=== PATIENT | female | born 1960 | race Caucasian/White ===

== ENCOUNTER → 2017-09-26 | Outpatient (CLI) | payer OTHER ==
[~2017-09-26] MED LIST: ACET325 PO; AEROECLIPSE II1 EACH MC; ALBU90OI6 INH; CEPH500 PO; CLOBET30L TOP; CLON.5 PO; Duoneb 2.5-0.5 M3 ML INH; ERYT333ERA PO; FLUSAL5005 INH; Flonase 0.05% N16 GM; HYDACE5 PO; LEVFLO500 PO; LEVO750 PO; LITH300C PO; MONT10T PO; NAPR500 PO; NEOPOLHCSU OT; NEOPOLHYD BOTHEARS; Naprosyn500 MG PO; OMEP20ER PO; PRED10 PO; Prednisone20 MG PO; Prilosec Otc20 MG PO; Robaxin500 MG PO; SERT50 PO; TIOT18 IH; TIOT18 INH; TUDORZA PRESS400 MCG IH; Triamcinolone A15 G3 TOP; VARE1 PO; Ventolin Soln3 ML INH; Ventolin5 MG/1 ML IH
[2017-09-27 12:21] LABS: Adenovirus F 40/41 Not Detected (NOT DETECT); Astrovirus Not Detected (NOT DETECT); Campylobacter Sp Not Detected (NOT DETECT); Cryptosporidium Not Detected (NOT DETECT); Cyclospora Cayetanensis Not Detected (NOT DETECT); E. Coli O157 Not Detected (NOT DETECT); Entamoeba Histolytica Not Detected (NOT DETECT); Enteroaggregative E. coli-EAEC Not Detected (NOT DETECT); Enteropathogenic E. coli-EPEC Not Detected (NOT DETECT); Enterotoxigenic E. coli-ETEC Not Detected (NOT DETECT); Giardia Lamblia Not Detected (NOT DETECT); Norovirus GI/GII Not Detected (NOT DETECT); Plesiomonas Shigelloides Not Detected (NOT DETECT); Rotavirus A Not Detected (NOT DETECT); Salmonella Sp Not Detected (NOT DETECT); Sapovirus Not Detected (NOT DETECT); Shiga Toxin-prod E. coli-STEC Not Detected (NOT DETECT); Shigella/Enteroin E. coli-EIEC Not Detected (NOT DETECT); Vibrio Cholerae Not Detected (NOT DETECT); Vibrio Sp Not Detected (NOT DETECT); Yersinia Enterocolitica Not Detected (NOT DETECT)
== END | disposition home or self-care (01) ==
LOC: LAB 07:00 → LAB FUT 09-23 12:30
PROVIDERS: Internal Medicine Gastroenterology
DX: R19.7 Diarrhea, unspecified (principal)
CPT/HCPCS: 87507

== ENCOUNTER 2017-10-06 13:59 | Day surgery (SDC) | payer OTHER ==
[~2017-10-06] VITALS: Ht 160 cm; Wt 90.5 kg
== END 2017-10-06 15:38 | disposition home or self-care (01) ==
LOC: ORSCSDS 13:59
PROVIDERS: Internal Medicine Gastroenterology
PROC: 0D758ZZ Dilation of Esophagus, Via Natural or Artificial Opening Endoscopic (ICD-10-PCS; principal; 2017-10-06 15:30)
PROC: 0DB58ZX Excision of Esophagus, Via Natural or Artificial Opening Endoscopic, Diagnostic (ICD-10-PCS; principal; 2017-10-06 15:30)
DX: R13.14 Dysphagia, pharyngoesophageal phase (principal); K29.80 Duodenitis without bleeding; K74.69 Other cirrhosis of liver; K29.60 Other gastritis without bleeding; R19.7 Diarrhea, unspecified; J44.9 Chronic obstructive pulmonary disease, unspecified; Z86.19 Personal history of other infectious and parasitic diseases; F17.210 Nicotine dependence, cigarettes, uncomplicated; E66.9 Obesity, unspecified; Z68.35 Body mass index [BMI] 35.0-35.9, adult; Z79.899 Other long term (current) drug therapy
CPT/HCPCS: 87081; 88305; J7120

== ENCOUNTER 2018-11-11 19:26 | Emergency (ER) | payer OTHER ==
[~2018-11-11] VITALS: Ht 160 cm; Wt 93.9 kg
[2018-11-11 20:12] LABS: BASOPHILS ABSOLUTE AUTO 0.06 K/mm3 (0.00-0.23); BASOPHILS PERCENT AUTO 1 % (0-2); EOSINOPHILS ABSOLUTE AUTO 0.16 K/mm3 (0.00-0.68); EOSINOPHILS PERCENT AUTO 2 % (0-6); Hematocrit 40.1 % (33.0-51.0); Hemoglobin 12.6 g/dL (11.5-16.0); IMMATURE GRAN ABSOLUTE AUTO 0.02 K/mm3 (0.00-0.10); IMMATURE GRAN PERCENT AUTO 0 % (0-1); LYMPHOCYTES ABSOLUTE AUTO 1.98 K/mm3 (0.84-5.20); LYMPHOCYTES PERCENT AUTO 30 % (21-46); MONOCYTES ABSOLUTE AUTO 0.47 K/mm3 (0.16-1.47); MONOCYTES PERCENT AUTO 7 % (4-13); Mean Corpuscular HGB 32.9 pg (26.0-34.0); Mean Corpuscular HGB Conc 31.4 g/dL (31.5-36.5); Mean Corpuscular Volume 105 fL (80-100); Mean Platelet Volume 12.1 fL (9.1-12.4); NEUTROPHILS ABSOLUTE AUTO 3.92 K/mm3 (1.96-9.15); NEUTROPHILS PERCENT AUTO 59 % (41-73); Platelet Count 87 K/mm3 (150-400); RDW Coefficient Variation 13.2 % (11.7-14.2); RDW Standard Deviation 50.9 fL (35.1-46.3); Red Blood Cell Count 3.83 M/mm3 (3.80-5.20); White Blood Cell Count 6.61 K/mm3 (4.00-11.30)
[2018-11-11 20:32] LABS: Alanine Aminotransfer (ALT/SGP 35 U/L (12-78); Albumin, Blood 3.2 g/dL (3.4-5.0); Albumin/Globulin Ratio 0.8 (0.8-1.8); Alk Phos 93 U/L (50-136); Anion Gap 4 mmol/L (6-16); Aspartate Aminotrans (AST/SGOT 33 U/L (12-37); Bilirubin, Total 0.5 mg/dL (0.1-1.0); Blood Urea Nitrogen 6 mg/dL (8-24); Bun/Creatinine Ratio 7.3 (12.0-20.0); CO2, Blood 26 mmol/L (21-32); Calcium, Blood 8.6 mg/dL (8.5-10.1); Chloride, Blood 111 mmol/L (98-108); Creatinine, Blood 0.82 mg/dL (0.40-1.00); Globulin, Blood 3.8 g/dL (2.2-4.0); Glomerular Filtration Rate >60 (60-); Glucose, Blood 148 mg/dL (70-99); Potassium, Blood 3.6 mmol/L (3.5-5.5); Sodium, Blood 141 mmol/L (136-145)
[2018-11-11] MEDS ORDERED: CEFD300 PO (20:59)
== END 2018-11-11 21:56 | disposition home or self-care (01) ==
LOC: ER 19:26
PROVIDERS: Physician Assistant
DX: L03.213 Periorbital cellulitis (principal); Z88.0 Allergy status to penicillin; Z88.8 Allergy status to other drugs, medicaments and biological substances; Z88.5 Allergy status to narcotic agent; Z79.899 Other long term (current) drug therapy; Z87.891 Personal history of nicotine dependence
CPT/HCPCS: 36415; 70481; 80053; 85025; 99284-25; Q9967

== ENCOUNTER 2019-07-20 10:43 | Day surgery (SDC) | payer OTHER ==
[~2019-07-20 10:43] MED LIST changes: +CEFD300 PO
== END 2019-07-20 23:12 | disposition home or self-care (01) ==
LOC: MIR 10:43 → RAD 10:43 → MIR 11:30 → RAD 23:12
DX: R13.14 Dysphagia, pharyngoesophageal phase (principal); R13.12 Dysphagia, oropharyngeal phase; E04.1 Nontoxic single thyroid nodule; R49.0 Dysphonia; R49.9 Unspecified voice and resonance disorder; M46.02 Spinal enthesopathy, cervical region; Z79.899 Other long term (current) drug therapy
CPT/HCPCS: 74230; 92611

== ENCOUNTER 2019-08-08 08:19 | Day surgery (SDC) | payer OTHER ==
[2019-08-08 10:02] LABS: Performing Lab VERACYTE; Test Name FNA
== END 2019-08-08 22:52 | disposition home or self-care (01) ==
LOC: US 08:19
PROVIDERS: Otolaryngology
DX: E04.1 Nontoxic single thyroid nodule (principal)
CPT/HCPCS: 10005

== ENCOUNTER 2019-10-17 16:31 | Emergency (ER) | payer OTHER ==
[~2019-10-17] VITALS: Ht 160 cm; Wt 65.3 kg
[2019-10-17 17:35] LABS: BASOPHILS ABSOLUTE AUTO 0.06 K/mm3 (0.00-0.23); BASOPHILS PERCENT AUTO 1 % (0-2); EOSINOPHILS ABSOLUTE AUTO 0.17 K/mm3 (0.00-0.68); EOSINOPHILS PERCENT AUTO 3 % (0-6); Hematocrit 45.4 % (33.0-51.0); Hemoglobin 14.2 g/dL (11.5-16.0); IMMATURE GRAN ABSOLUTE AUTO 0.02 K/mm3 (0.00-0.10); IMMATURE GRAN PERCENT AUTO 0 % (0-1); LYMPHOCYTES ABSOLUTE AUTO 1.86 K/mm3 (0.84-5.20); LYMPHOCYTES PERCENT AUTO 27 % (21-46); MONOCYTES ABSOLUTE AUTO 0.59 K/mm3 (0.16-1.47); MONOCYTES PERCENT AUTO 9 % (4-13); Mean Corpuscular HGB 33.3 pg (26.0-34.0); Mean Corpuscular HGB Conc 31.3 g/dL (31.5-36.5); Mean Corpuscular Volume 107 fL (80-100); Mean Platelet Volume 11.6 fL (9.1-12.4); NEUTROPHILS ABSOLUTE AUTO 4.15 K/mm3 (1.96-9.15); NEUTROPHILS PERCENT AUTO 61 % (41-73); Platelet Count 103 K/mm3 (150-400); RDW Coefficient Variation 13.1 % (11.7-14.2); Red Blood Cell Count 4.26 M/mm3 (3.80-5.20); White Blood Cell Count 6.85 K/mm3 (4.00-11.30)
[2019-10-17 17:56] LABS: Alanine Aminotransfer (ALT/SGP 15 U/L (12-78); Albumin, Blood 3.1 g/dL (3.4-5.0); Albumin/Globulin Ratio 0.6 (0.8-1.8); Alk Phos 133 U/L (50-136); Anion Gap 4 mmol/L (6-16); Aspartate Aminotrans (AST/SGOT 16 U/L (12-37); Bilirubin, Total 0.7 mg/dL (0.1-1.0); Blood Urea Nitrogen 7 mg/dL (8-24); Bun/Creatinine Ratio 8.3 (12.0-20.0); CO2, Blood 27 mmol/L (21-32); Calcium, Blood 8.7 mg/dL (8.5-10.1); Chloride, Blood 110 mmol/L (98-108); Creatinine, Blood 0.84 mg/dL (0.40-1.00); Globulin, Blood 4.9 g/dL (2.2-4.0); Glomerular Filtration Rate >60 (60-); Glucose, Blood 200 mg/dL (70-99); Potassium, Blood 3.3 mmol/L (3.5-5.5); Sodium, Blood 141 mmol/L (136-145); Troponin I <0.015 ng/mL (0.000-0.040)
[2019-10-17] MEDS ORDERED: Vibramycin100 MG PO (18:49)
[2019-10-17] MEDS ORDERED: Prednisone20 MG PO (18:49)
== END 2019-10-17 19:09 | disposition home or self-care (01) ==
LOC: ER 16:31
PROVIDERS: Emergency Medicine
DX: J20.9 Acute bronchitis, unspecified (principal); J45.909 Unspecified asthma, uncomplicated; F31.9 Bipolar disorder, unspecified; Z88.0 Allergy status to penicillin; Z88.6 Allergy status to analgesic agent; Z88.5 Allergy status to narcotic agent; Z79.899 Other long term (current) drug therapy; Z79.51 Long term (current) use of inhaled steroids
CPT/HCPCS: 36415; 71045; 80053; 84484; 85025; 93005; 93010; 94640; 96374; 99284-25; J2930

== ENCOUNTER → 2019-12-22 | Outpatient (CLI) | payer OTHER ==
[~2019-12-22] MED LIST changes: +ALBU2.5V5 INH; +ALBU90OI INH; +BREO ELLIPTA 21 EAC1 INH; +COLE625 PO; +INCRUSE ELLI62.5 MC1 INH; +NUCALA100 MG/11 SC; +Vibramycin100 MG PO
== END ==
LOC: LAB SHORT 14:13 → LAB 14:13
DX: R05 Cough (principal)
CPT/HCPCS: 87070; 87077; 87185; 87205

== ENCOUNTER 2020-01-03 11:31 | Day surgery (SDC) | payer OTHER ==
[~2020-01-03] VITALS: Ht 160 cm; Wt 79.1 kg
== END 2020-01-03 13:44 | disposition home or self-care (01) ==
LOC: ORSCSDS 11:31
PROVIDERS: Internal Medicine Gastroenterology
PROC: 0DB68ZX Excision of Stomach, Via Natural or Artificial Opening Endoscopic, Diagnostic (ICD-10-PCS; principal; 2020-01-03 13:00)
DX: K74.60 Unspecified cirrhosis of liver (principal); I85.00 Esophageal varices without bleeding; J44.9 Chronic obstructive pulmonary disease, unspecified; F31.9 Bipolar disorder, unspecified; K21.9 Gastro-esophageal reflux disease without esophagitis; K76.6 Portal hypertension; B19.20 Unspecified viral hepatitis C without hepatic coma; K31.89 Other diseases of stomach and duodenum; J45.909 Unspecified asthma, uncomplicated; Z87.891 Personal history of nicotine dependence; E66.9 Obesity, unspecified; Z68.31 Body mass index [BMI] 31.0-31.9, adult; Z79.899 Other long term (current) drug therapy
CPT/HCPCS: 87081; J2704; J7120

== ENCOUNTER → 2021-05-01 | Outpatient (CLI) | payer OTHER ==
[2021-05-01 20:10] LABS: BASOPHILS ABSOLUTE AUTO 0.06 K/mm3 (0.00-0.23); BASOPHILS PERCENT AUTO 1 % (0-2); EOSINOPHILS ABSOLUTE AUTO 0.14 K/mm3 (0.00-0.68); EOSINOPHILS PERCENT AUTO 2 % (0-6); Hematocrit 40.4 % (33.0-51.0); Hemoglobin 12.9 g/dL (11.5-16.0); IMMATURE GRAN ABSOLUTE AUTO 0.02 K/mm3 (0.00-0.10); IMMATURE GRAN PERCENT AUTO 0 % (0-1); LYMPHOCYTES ABSOLUTE AUTO 1.55 K/mm3 (0.84-5.20); LYMPHOCYTES PERCENT AUTO 25 % (21-46); MONOCYTES ABSOLUTE AUTO 0.52 K/mm3 (0.16-1.47); MONOCYTES PERCENT AUTO 8 % (4-13); Mean Corpuscular HGB 32.9 pg (26.0-34.0); Mean Corpuscular HGB Conc 31.9 g/dL (31.5-36.5); Mean Corpuscular Volume 103 fL (80-100); Mean Platelet Volume 12.9 fL (9.1-12.4); NEUTROPHILS ABSOLUTE AUTO 3.94 K/mm3 (1.96-9.15); NEUTROPHILS PERCENT AUTO 63 % (41-73); Platelet Count 81 K/mm3 (150-400); RDW Coefficient Variation 13.3 % (11.7-14.2); RDW Standard Deviation 51.3 fL (35.1-46.3); Red Blood Cell Count 3.92 M/mm3 (3.80-5.20); White Blood Cell Count 6.23 K/mm3 (4.00-11.30)
[2021-05-01 20:34] LABS: Lithium 0.69 mmol/L (0.60-1.20); Magnesium, Blood 2.4 mg/dL (1.6-2.4)
[2021-05-01 21:00] LABS: Albumin, Blood 3.2 g/dL (3.4-5.0); Albumin/Globulin Ratio 0.8 (0.8-1.8); Bilirubin, Total 0.8 mg/dL (0.1-1.0); Bun/Creatinine Ratio 8.8 (12.0-20.0); Calcium, Blood 8.8 mg/dL (8.5-10.1); Creatinine, Blood 1.02 mg/dL (0.40-1.00); Globulin, Blood 4.1 g/dL (2.2-4.0); Phosphorus, Blood 1.7 mg/dL (2.5-4.9); Potassium, Blood 3.4 mmol/L (3.5-5.5); Total Protein, Blood 7.3 g/dL (6.4-8.2)
== END | disposition home or self-care (01) ==
LOC: LAB SHORT 15:26
PROVIDERS: Family Medicine
DX: F31.9 Bipolar disorder, unspecified (principal); D75.89 Other specified diseases of blood and blood-forming organs; R25.2 Cramp and spasm
CPT/HCPCS: 80053; 80178; 82607; 82746; 83735; 84100; 85025

== ENCOUNTER → 2021-10-15 | Outpatient (CLI) | payer OTHER | END | disposition home or self-care (01) | LOC: LAB SHORT 14:45 | DX: E83.39 Other disorders of phosphorus metabolism (principal) | CPT/HCPCS: 84100 ==

== ENCOUNTER 2022-06-15 08:31 | Inpatient (IN) | payer OTHER ==
[~2022-06-15] VITALS: Ht 167.6 cm; Wt 83.5 kg
[2022-06-15 08:58] LABS: BASOPHILS ABSOLUTE AUTO 0.02 K/mm3 (0.00-0.23); BASOPHILS PERCENT AUTO 0 % (0-2); EOSINOPHILS ABSOLUTE AUTO 0.03 K/mm3 (0.00-0.68); EOSINOPHILS PERCENT AUTO 1 % (0-6); Hematocrit 37.6 % (33.0-51.0); Hemoglobin 12.1 g/dL (11.5-16.0); IMMATURE GRAN ABSOLUTE AUTO 0.02 K/mm3 (0.00-0.10); IMMATURE GRAN PERCENT AUTO 0 % (0-1); LYMPHOCYTES ABSOLUTE AUTO 0.45 K/mm3 (0.84-5.20); LYMPHOCYTES PERCENT AUTO 10 % (21-46); MONOCYTES ABSOLUTE AUTO 0.59 K/mm3 (0.16-1.47); MONOCYTES PERCENT AUTO 13 % (4-13); Mean Corpuscular HGB 33.6 pg (26.0-34.0); Mean Corpuscular HGB Conc 32.2 g/dL (31.5-36.5); Mean Corpuscular Volume 104 fL (80-100); NEUTROPHILS ABSOLUTE AUTO 3.37 K/mm3 (1.96-9.15); NEUTROPHILS PERCENT AUTO 75 % (41-73); Platelet Count 51 K/mm3 (150-400); RDW Coefficient Variation 13.8 % (11.7-14.2); RDW Standard Deviation 53.6 fL (35.1-46.3); White Blood Cell Count 4.48 K/mm3 (4.00-11.30)
[2022-06-15 09:12] LABS: Albumin, Blood 3.2 g/dL (3.4-5.0); Albumin/Globulin Ratio 0.9 (0.8-1.8); Bilirubin, Total 1.6 mg/dL (0.1-1.0); Bun/Creatinine Ratio 10.4 (12.0-20.0); Calcium, Blood 8.7 mg/dL (8.5-10.1); Creatinine, Blood 1.15 mg/dL (0.40-1.00); Globulin, Blood 3.6 g/dL (2.2-4.0); Potassium, Blood 3.8 mmol/L (3.5-5.5); Total Protein, Blood 6.8 g/dL (6.4-8.2)
[2022-06-15 09:56] LABS: Influenza B, PCR NEGATIVE (NEGATIVE); Resp Syncytial Virus, PCR NEGATIVE (NEGATIVE); SARS-Cov-2 (COVID-19) PCR, MMC NEGATIVE (NEGATIVE)
[2022-06-15 09:57] LABS: Influenza A, PCR POSITIVE (NEGATIVE)
[2022-06-15] MEDS ORDERED: Ventolin/Prove6.7 GM (13:38)
[2022-06-15] MEDS ORDERED: TRELEGY ELLIPT1 EAC1 IH (13:38)
[2022-06-15] MEDS ORDERED: MONT4 PO (13:38)
--- NOTE | 2022-06-15 18:15 | NUR ---
Patient admitted today for hypoxia & Infulenza A. Patient arrived dyspenic, pursed lip breathing, tremors. Patient reported anixety d/t SOB, felt jittery from neb treatments. Saturations stable on 2lpm via NC. Administred Nicotine patch to right shoulder, & Vistiril for anxiety. Patient currently resting comfortably in bed, RR even/nonlabored. During admission, pt declined skin check, reported sccars/bruising on arms bilaterally. Droplet precautions in place. Cardiac diet ordered, changed diet to soft bite size, per patient request. Patient does not have any teeth or dentures with her. Will continue plan of care.
--- NOTE | 2022-06-16 04:18 | NUR ---
SHIFT SUMMARY PATIENT HAD NO ACUTE CHANGES. ONE ASSIST TO BR. ON 2L O2 N/C. VSS/AFEBRILE. DENIES PAIN, SOB, AND N/V. RT IN FOR BREATHING TX. SCHEDULE SOLU-MEDROL. DROPLET PRECAUTIONS. TAMIFLU STARTED PER EMAR. ABLE TO SLEEP MOST OF THE SHIFT. CALL LIGHT IN REACH. BED IN LOWEST POSITION. WILL CONTINUE TO MONITOR UNTIL DAY SHIFT NURSE ASSUMES CARE.
[2022-06-16 06:29] LABS: Hematocrit 34.2 % (33.0-51.0); Hemoglobin 11.3 g/dL (11.5-16.0); Mean Corpuscular Volume 103 fL (80-100); RDW Coefficient Variation 13.5 % (11.7-14.2); RDW Standard Deviation 51.8 fL (35.1-46.3); Red Blood Cell Count 3.32 M/mm3 (3.80-5.20)
[2022-06-16 06:50] LABS: Mean Platelet Volume 13.6 fL (9.1-12.4)
[2022-06-16 06:51] LABS: Platelet Count 47 K/mm3 (150-400)
[2022-06-16 07:01] LABS: Bun/Creatinine Ratio 18.5 (12.0-20.0); Calcium, Blood 8.9 mg/dL (8.5-10.1); Creatinine, Blood 1.3 mg/dL (0.40-1.00)
--- NOTE | 2022-06-16 17:33 | NUR ---
SHIFT SUMMARY PATIENT IS ALERT AND ORIENTED. PATIENT IS ON 1L NC. PATIENT IS WEAK AND DECONDITIONED. PATIENT HAS HAD NO ACUTE EVENTS THIS SHIFT. VITAL SIGNS REVIEWED. PATIENT HAS NOT COMPLAINED OF PAIN, NAUSEA, SOB OR VOMITTING THIS SHIFT. BED IN LOCKED AND LOWEST POSITION. CALL LIGHT IN PLACE. WILL MONITOR UNTIL SHIFT CHANGE.
[2022-06-17 08:55] LABS: BASOPHILS ABSOLUTE AUTO 0.01 K/mm3 (0.00-0.23); BASOPHILS PERCENT AUTO 0 % (0-2); EOSINOPHILS PERCENT AUTO 0 % (0-6); Hematocrit 35.3 % (33.0-51.0); Hemoglobin 11.4 g/dL (11.5-16.0); IMMATURE GRAN ABSOLUTE AUTO 0.08 K/mm3 (0.00-0.10); IMMATURE GRAN PERCENT AUTO 1 % (0-1); LYMPHOCYTES ABSOLUTE AUTO 0.94 K/mm3 (0.84-5.20); LYMPHOCYTES PERCENT AUTO 10 % (21-46); MONOCYTES ABSOLUTE AUTO 0.71 K/mm3 (0.16-1.47); MONOCYTES PERCENT AUTO 8 % (4-13); Mean Corpuscular HGB 33.1 pg (26.0-34.0); Mean Corpuscular HGB Conc 32.3 g/dL (31.5-36.5); Mean Corpuscular Volume 103 fL (80-100); NEUTROPHILS ABSOLUTE AUTO 7.63 K/mm3 (1.96-9.15); NEUTROPHILS PERCENT AUTO 81 % (41-73); Platelet Count 68 K/mm3 (150-400); RDW Coefficient Variation 13.9 % (11.7-14.2); RDW Standard Deviation 52.6 fL (35.1-46.3); Red Blood Cell Count 3.44 M/mm3 (3.80-5.20); White Blood Cell Count 9.37 K/mm3 (4.00-11.30)
[2022-06-17 09:03] LABS: Mean Platelet Volume 13.5 fL (9.1-12.4)
[2022-06-17 09:48] LABS: Bun/Creatinine Ratio 33.8 (12.0-20.0); Calcium, Blood 9.2 mg/dL (8.5-10.1); Creatinine, Blood 1.48 mg/dL (0.40-1.00); Potassium, Blood 4.2 mmol/L (3.5-5.5)
--- NOTE | 2022-06-17 19:27 | NUR ---
SHIFT SUMMARY- PT ALERT AND ORIENTED X3. SHE HAD A VISITOR AT THE BEDSIDE T/O THE SHIFT. SHE IS A BIT ANXIOUS AND JITTERS AND SHAKESCONSTANTLY WHILE STAFF ARE ASSESSING. PT CALLS APPROPRIATELY. PT IN BED, CALL LIGHT IN REACH NO S&S OF DISTRESS NOTED. REPORT COMPLETED WITH NIGHT RN.
--- NOTE | 2022-06-18 03:26 | NUR ---
SHIFT SUMMARY NO OVERNIGHT EVENTS. DENIES ANY PAIN, DYSPNEA WITH EXERTION. HAS NONPRODUCTIVE MOIST COUGH. REMAINS ON ROOM AIR. AMBULATING SBA FWW TO BATHROOM. SLEPT WELL. ABLE TO MAKE NEEDS KNOWN, CALL LIGHT IN REACH.
[2022-06-18 07:35] LABS: Hematocrit 35.3 % (33.0-51.0); Hemoglobin 11.4 g/dL (11.5-16.0); Mean Corpuscular HGB 33.3 pg (26.0-34.0); Mean Corpuscular HGB Conc 32.3 g/dL (31.5-36.5); Mean Corpuscular Volume 103 fL (80-100); Mean Platelet Volume 11.7 fL (9.1-12.4); Platelet Count 69 K/mm3 (150-400); RDW Coefficient Variation 14.3 % (11.7-14.2); RDW Standard Deviation 54.1 fL (35.1-46.3); Red Blood Cell Count 3.42 M/mm3 (3.80-5.20); White Blood Cell Count 8.82 K/mm3 (4.00-11.30)
[2022-06-18 07:50] LABS: Albumin, Blood 2.7 g/dL (3.4-5.0); Albumin/Globulin Ratio 0.8 (0.8-1.8); Bilirubin, Total 0.9 mg/dL (0.1-1.0); Bun/Creatinine Ratio 35.3 (12.0-20.0); Calcium, Blood 9.4 mg/dL (8.5-10.1); Creatinine, Blood 1.33 mg/dL (0.40-1.00); Globulin, Blood 3.4 g/dL (2.2-4.0); Total Protein, Blood 6.1 g/dL (6.4-8.2)
[2022-06-18] MEDS ORDERED: OSELTAMIVIR PHO30 M1 PO (15:14)
[2022-06-18] MEDS ORDERED: Prednisone20 MG PO (15:26)
[2022-06-18] MEDS ORDERED: GUAI600T33 PO (15:41)
--- NOTE | 2022-06-18 16:09 | NUR ---
DISCHARGE SUMMARY: PATIENT REPORTED THAT SHE FELT COMFORTABLE GOING HOME TODAY WITH HOME HEALTH. DAUGHTER CAME TO PICK THE PATIENT UP AND REPORTS THAT SHE LIVES ABOVE THE PATIENT. HOME HEALTH DELIVERED FWW TO THE PATIENT IN THE ROOM. DISCHARGE RX VERIFIED WITH DR. PALMA. FAXED TO [facility] PER PATIENT REQUEST. PATIENT REPORTS THAT HER BREATHING IS BACK TO BASELINE. PATIENT STABLE ON RA. PATIENT DOES SHOW SOME SHORTNESS OF BREATH WITH ACTIVITY. PATIENT STATES THIS IS HER BASELINE. PATIENT READY FOR DISCHARGE. DISCHARGE INSTRUCTIONS AND EDUCATION PROVIDED TO THE PATIENT AND DAUGHTER. ALL QUESTIONS AND CONCERNS ADDRESSED. PATIENT DISCHARGED WITH NETWORK DEVELOPMENT COORDINATOR AND DADUGHTER. PATIENT STABLE AT TIME OF DISCHARGE.
== END 2022-06-18 16:10 | disposition home health service (06) | DRG 193 ==
LOC: ER 08:31 → ERHOLD 08:32 → MEDS 15:45
PROVIDERS: Family Medicine; Physician Assistant; ADMIT Internal Medicine
DX: J10.1 Influenza due to other identified influenza virus with other respiratory manifestations (principal); J96.21 Acute and chronic respiratory failure with hypoxia; J44.0 Chronic obstructive pulmonary disease with (acute) lower respiratory infection; J44.1 Chronic obstructive pulmonary disease with (acute) exacerbation; J45.901 Unspecified asthma with (acute) exacerbation; K76.6 Portal hypertension; J20.9 Acute bronchitis, unspecified; F31.9 Bipolar disorder, unspecified; B19.20 Unspecified viral hepatitis C without hepatic coma; F17.210 Nicotine dependence, cigarettes, uncomplicated; D69.6 Thrombocytopenia, unspecified; K74.60 Unspecified cirrhosis of liver; K21.9 Gastro-esophageal reflux disease without esophagitis; K57.90 Diverticulosis of intestine, part unspecified, without perforation or abscess without bleeding; Z20.822 Contact with and (suspected) exposure to COVID-19; Z88.0 Allergy status to penicillin; Z88.8 Allergy status to other drugs, medicaments and biological substances; Z71.6 Tobacco abuse counseling; Z88.5 Allergy status to narcotic agent; Z79.899 Other long term (current) drug therapy; Z79.51 Long term (current) use of inhaled steroids; Z79.52 Long term (current) use of systemic steroids; Z98.890 Other specified postprocedural states; Z90.49 Acquired absence of other specified parts of digestive tract
CPT/HCPCS: 0241U; 36415; 71045; 80048; 80053; 83735; 83880; 85025; 85027; 85379; 93005; 93010; 94640; 94644; 94664; 94760; 96365; 96375; 96376; 97116; 97162; 97530; 99285-25; A9270; G0378; J2930; J3475; J7030; J7512; Q0177

== ENCOUNTER 2022-08-06 02:52 | Day surgery (SDC) | payer OTHER ==
[~2022-08-06 02:52] MED LIST changes: +DICLOFENAC SOD100 G1 TP; +GUAI600T33 PO; +IPRAT-ALBUT 0.5-3 ML INH; +K-Dur20 MEQ PO; +Lasix20 MG PO; +MONT4 PO; +NUCALA100 MG/11 SQ; +OSELTAMIVIR PHO30 M1 PO; +TRELEGY ELLIPT1 EAC1 IH; +TRIDERM28.4 GM TOP; +Ventolin/Prove6.7 GM
== END 2022-08-06 23:09 | disposition home or self-care (01) ==
LOC: WOUND 02:52
DX: E11.622 Type 2 diabetes mellitus with other skin ulcer (principal); L97.812 Non-pressure chronic ulcer of other part of right lower leg with fat layer exposed; L97.822 Non-pressure chronic ulcer of other part of left lower leg with fat layer exposed; I87.313 Chronic venous hypertension (idiopathic) with ulcer of bilateral lower extremity; I87.2 Venous insufficiency (chronic) (peripheral); I73.9 Peripheral vascular disease, unspecified; E11.59 Type 2 diabetes mellitus with other circulatory complications
CPT/HCPCS: A9270; G0463

== ENCOUNTER → 2022-08-18 | Outpatient (CLI) | payer OTHER ==
[~2022-08-18] MED LIST changes: +Potassium Chlo20 ME1 PO; +TRELEGY ELLIPT1 EAC1 INH
== END ==
LOC: LAB SHORT 07:56 → LAB 07:56
DX: R05.1 Acute cough (principal)
CPT/HCPCS: 87070; 87077; 87186; 87205

== ENCOUNTER → 2022-08-19 | Outpatient (CLI) | payer OTHER ==
[2022-08-19 15:41] LABS: BASOPHILS ABSOLUTE AUTO 0.07 K/mm3 (0.00-0.23); BASOPHILS PERCENT AUTO 1 % (0-2); EOSINOPHILS ABSOLUTE AUTO 0.18 K/mm3 (0.00-0.68); EOSINOPHILS PERCENT AUTO 3 % (0-6); Hematocrit 34.2 % (33.0-51.0); Hemoglobin 11.1 g/dL (11.5-16.0); IMMATURE GRAN ABSOLUTE AUTO 0.02 K/mm3 (0.00-0.10); IMMATURE GRAN PERCENT AUTO 0 % (0-1); LYMPHOCYTES ABSOLUTE AUTO 0.91 K/mm3 (0.84-5.20); LYMPHOCYTES PERCENT AUTO 13 % (21-46); MONOCYTES ABSOLUTE AUTO 0.58 K/mm3 (0.16-1.47); MONOCYTES PERCENT AUTO 8 % (4-13); Mean Corpuscular HGB 33.2 pg (26.0-34.0); Mean Corpuscular HGB Conc 32.5 g/dL (31.5-36.5); Mean Corpuscular Volume 102 fL (80-100); Mean Platelet Volume 12.5 fL (9.1-12.4); NEUTROPHILS ABSOLUTE AUTO 5.41 K/mm3 (1.96-9.15); NEUTROPHILS PERCENT AUTO 75 % (41-73); Platelet Count 91 K/mm3 (150-400); RDW Coefficient Variation 14.4 % (11.7-14.2); RDW Standard Deviation 54.3 fL (35.1-46.3); Red Blood Cell Count 3.34 M/mm3 (3.80-5.20); White Blood Cell Count 7.17 K/mm3 (4.00-11.30)
[2022-08-19 15:55] LABS: Albumin, Blood 2.8 g/dL (3.4-5.0); Albumin/Globulin Ratio 0.7 (0.8-1.8); Bilirubin, Total 1.7 mg/dL (0.1-1.0); Bun/Creatinine Ratio 4.1 (12.0-20.0); Calcium, Blood 8.9 mg/dL (8.5-10.1); Creatinine, Blood 1.48 mg/dL (0.40-1.00); Globulin, Blood 4.3 g/dL (2.2-4.0); Total Protein, Blood 7.1 g/dL (6.4-8.2)
[2022-08-19 16:34] LABS: Lithium 1.34 mmol/L (0.60-1.20)
== END | disposition home or self-care (01) ==
LOC: LAB SHORT 15:34 → LAB 15:34
PROVIDERS: Physician Assistant
DX: R10.9 Unspecified abdominal pain (principal)
CPT/HCPCS: 80053; 80178; 83690; 85025

== ENCOUNTER 2022-08-21 19:38 | Inpatient (IN) | payer OTHER ==
[~2022-08-21] VITALS: Ht 160 cm; Wt 91.0 kg
[~2022-08-21 19:38] MED LIST changes: -Potassium Chlo20 ME1 PO; -TRELEGY ELLIPT1 EAC1 INH
[2022-08-21 20:18] LABS: BASOPHILS ABSOLUTE AUTO 0.06 K/mm3 (0.00-0.23); BASOPHILS PERCENT AUTO 0 % (0-2); EOSINOPHILS ABSOLUTE AUTO 0.09 K/mm3 (0.00-0.68); EOSINOPHILS PERCENT AUTO 1 % (0-6); Hematocrit 30.5 % (33.0-51.0); Hemoglobin 9.9 g/dL (11.5-16.0); IMMATURE GRAN ABSOLUTE AUTO 0.12 K/mm3 (0.00-0.10); IMMATURE GRAN PERCENT AUTO 1 % (0-1); LYMPHOCYTES ABSOLUTE AUTO 1.86 K/mm3 (0.84-5.20); LYMPHOCYTES PERCENT AUTO 11 % (21-46); MONOCYTES PERCENT AUTO 9 % (4-13); Mean Corpuscular HGB 32.8 pg (26.0-34.0); Mean Corpuscular HGB Conc 32.5 g/dL (31.5-36.5); Mean Corpuscular Volume 101 fL (80-100); Mean Platelet Volume 12.1 fL (9.1-12.4); NEUTROPHILS ABSOLUTE AUTO 12.76 K/mm3 (1.96-9.15); NEUTROPHILS PERCENT AUTO 78 % (41-73); Platelet Count 77 K/mm3 (150-400); RDW Coefficient Variation 14.2 % (11.7-14.2); RDW Standard Deviation 52.7 fL (35.1-46.3); Red Blood Cell Count 3.02 M/mm3 (3.80-5.20); White Blood Cell Count 16.39 K/mm3 (4.00-11.30)
[2022-08-21 20:31] LABS: Albumin, Blood 2.6 g/dL (3.4-5.0); Albumin/Globulin Ratio 0.6 (0.8-1.8); Bilirubin, Total 2.3 mg/dL (0.1-1.0); Bun/Creatinine Ratio 9.3 (12.0-20.0); Calcium, Blood 8.7 mg/dL (8.5-10.1); Creatinine, Blood 1.51 mg/dL (0.40-1.00); Potassium, Blood 3.2 mmol/L (3.5-5.5); Total Protein, Blood 6.6 g/dL (6.4-8.2)
[2022-08-21 20:54] LABS: Source, Urine Straight Cath
[2022-08-21 20:58] LABS: Bilirubin, Urine Neg (Neg); Blood, Urine Neg (Neg); Glucose Qualitative, Urine Neg (Neg); Ketones, Urine Neg (Neg); Leukocyte Esterase, Urine Neg (Neg); Nitrite, Urine Neg (Neg); Protein, Urine Neg (Neg); Urobilinogen, Urine 1+ (Normal); pH, Urine 6.5 (5.0-8.0)
[2022-08-21 20:59] LABS: Appearance, Urine Clear (Clear); Color, Urine Yellow (P-Yellow)
[2022-08-21] MEDS ORDERED: Potassium Chlo20 ME1 PO (22:15)
[2022-08-22 03:41] LABS: BASOPHILS ABSOLUTE AUTO 0.05 K/mm3 (0.00-0.23); BASOPHILS PERCENT AUTO 0 % (0-2); EOSINOPHILS ABSOLUTE AUTO 0.07 K/mm3 (0.00-0.68); EOSINOPHILS PERCENT AUTO 1 % (0-6); Hematocrit 27.8 % (33.0-51.0); Hemoglobin 9.1 g/dL (11.5-16.0); IMMATURE GRAN ABSOLUTE AUTO 0.08 K/mm3 (0.00-0.10); IMMATURE GRAN PERCENT AUTO 1 % (0-1); LYMPHOCYTES ABSOLUTE AUTO 1.83 K/mm3 (0.84-5.20); LYMPHOCYTES PERCENT AUTO 14 % (21-46); MONOCYTES ABSOLUTE AUTO 1.27 K/mm3 (0.16-1.47); MONOCYTES PERCENT AUTO 9 % (4-13); Mean Corpuscular HGB 32.7 pg (26.0-34.0); Mean Corpuscular HGB Conc 32.7 g/dL (31.5-36.5); Mean Corpuscular Volume 100 fL (80-100); Mean Platelet Volume 12.6 fL (9.1-12.4); NEUTROPHILS ABSOLUTE AUTO 10.15 K/mm3 (1.96-9.15); NEUTROPHILS PERCENT AUTO 76 % (41-73); Platelet Count 67 K/mm3 (150-400); RDW Coefficient Variation 14.2 % (11.7-14.2); RDW Standard Deviation 52.1 fL (35.1-46.3); Red Blood Cell Count 2.78 M/mm3 (3.80-5.20); White Blood Cell Count 13.45 K/mm3 (4.00-11.30)
[2022-08-22 03:58] LABS: Albumin, Blood 2.3 g/dL (3.4-5.0); Albumin/Globulin Ratio 0.6 (0.8-1.8); Bilirubin, Total 2.1 mg/dL (0.1-1.0); Bun/Creatinine Ratio 8.8 (12.0-20.0); Calcium, Blood 8.2 mg/dL (8.5-10.1); Creatinine, Blood 1.47 mg/dL (0.40-1.00); Globulin, Blood 3.8 g/dL (2.2-4.0); Total Protein, Blood 6.1 g/dL (6.4-8.2)
--- NOTE | 2022-08-22 04:13 | NUR ---
ASSUMPTION OF CARE AND PROGRESS NOTE THIS RN ASSUMED CARE OF PT AT 0035. REPORT FROM EDI ANDERSON. PT ARRIVED VIA ER GURANN, PT APPEARS FATIGUE AND PALE, BUT IS RESPONDING TO QUESTIONS APPROPRIATELY. PT A&0 X4. RESPONSES ARE SLOWED. PT DENIES CP, PRESSURE OR SOB. PT REPORTS HX OF CP; BUT CURRENTLY IS FREE OF CP. PT AUDIBLY SOUNDS COARSE AND WHEEZING, BUT LUNG SOUNDS ARE FAIRLY CLEAR. RT IN TO LISTEN TO PT AND ASSESS. RT ADMINISTERED BREATHING TX BUT STATES LS ARE CLEAR. PT REPORTS A COUGH FROM ABOUT "2 MONTHS". SPO2 96% ON RA. VSS; ALTHOUGH TEMP 100.2. AT THIS TIME PT DENIES N/V, REPORTS DIARRHEA FOR PAST "FEW MONTHS". PT USING BEDPAN TO VOID D/T FEELING "TOO WEAK" TO GET UP RIGHT NOW. PT DENIES GENERAL PAIN, SKIN IS DRY, FRAGILE AND BRUISING SCATTERED T/O. 3+ PITTING EDEMA IN BLE AND BUE. PT DENIES ANY NEEDS AT THIS TIME. PT ORIENTED TO ROOM AND CALL LIGHT IN REACH, BED IN LOWEST POSITION.
--- NOTE | 2022-08-22 06:29 | NUR ---
SHIFT SUMMARY NO ACUTE CHANGES W/PT. VS REMAIN STABLE. PT SLEPT WELL THROUGHOUT THE NIGHT. PT CONTINUES TO DENY CP, PRESSURE OR SOB. PT DENIES DIFFICULTY BREATHING. NO RESPIRATORY DISTRESS NOTED; PT STILL SOUNDS COARSE BUT SPO2 REMAIN 98-100% ON RA. PT JUST STATES SHE IS "TIRED". CALL LIGHT IN REACH AND BED IN LOWEST POSITION. LR INFUSING PER EMAR. WILL UPDATE ONCOMING RN.
--- NOTE | 2022-08-22 10:48 | NUR ---
AM NOTE: PATIENT ALERT AND ORIENTED X3-4. SLOW TO SPEAK AND SOFT SPOKEN. OVERALL VERY WEAK. NEEDING HELP WITH TURNING IN BED. TREMORS THROUGHOUT. PATIENT STATES SHE "SHAKES" ALOT. DENIES N/T. TELE SHOWING SR THIS AM. BP STABLE. PPP. DENIES CHEST PAIN/PRESSURE. ON ROOM AIR SATING MID 90'S. VERY WHEEZY THIS AM, BREATHING TREATMENT PROVIDED. DR. BURNHAM CALLED TO UPDATE ON WHEEZINESS. FLUIDS DISCONTINUED, BNP LAD DRAW, AND ECHO ORDERED. DENIES ABDOMINAL PAIN/NAUSEA. EATING AND DRINKING WNL. LEFT FA CELLULITIS, MARKED WITH SKIN MARKER THIS AM. SEE CHART PHOTOS. SOME SLIGHT REDNESS TO RIGHT FA AND BLE. EDEMA NOTED THROUGHOUT. 3+ PITTING EDEMA TO UPPER AND LOWER EXTREMITIES. ABX INFUSED THIS AM. AM CARES COMPLETED AND PATIENT SLEEPING AT THIS TIME. CALL LIGHT IN REACH.
[2022-08-22] MEDS ORDERED: TRELEGY ELLIPT1 EAC1 INH (12:05)
[2022-08-22] MEDS ORDERED: NAPR500 PO (12:07)
--- NOTE | 2022-08-22 12:42 | NUR ---
PATIENT UNABLE TO VOID THIS AM ON BED VILLAFANA OR BEDSIDE COMMODE. BLADDER SCAN DONE SHOWING 662ML. CALL PLACED TO DR. BURNHAM. ORDERS FOR STRAIGHT CATH. PATIENT EATING LUNCH AT TIME AND VERY HESITANT TO STRAIGHT CATH IN GENERAL. THIS RN SUGGESTED TRYING TO VOID ON TOILET ONE MORE TIME PRIOR TO STRAIGHT CATH. PATIENT ABLE TO VOID 700 ML ON TOILET. NO STRAIGHT CATH NEEDED.
--- NOTE | 2022-08-22 18:34 | NUR ---
TRANSFER: NO ACUTE CHANGES. PATIENT TRANSFER TO MEDICAL FLOOR, ROOM 360. VITAL SIGNS REMAINS STABLE. TRANSFERRED WITH ALL PERSONAL BELONGINGS VIA WHEELCHAIR. REPORTED OF TO MED FLOOR RN.
--- NOTE | 2022-08-22 18:41 | NUR ---
TRANSFER- TRANSFER FROM PCU. PT IS ALERT AND ORIENTED X4 . CAME BY WHEELCHAIR. SIGNIFICANT SOB AND WHEEZING. 2 RN SKIN CHECK WITH EDI GIVENS. BRUISE ON COCCYX AND REDNESS UNDER BOTTOCK CHEEKS.
--- NOTE | 2022-08-22 19:25 | NUR ---
AWAKE, TV ON. DENIES PAIN. STATES HAS SOME LOSS OF FEELING IN "FINGERS". CALL LIGHT IN REACH. ISOLATION PRECAUTIONS MAINTAINED.
--- NOTE | 2022-08-23 03:35 | NUR ---
JAR CAPPER SUMMARY VSS. LEFT ARM REMAINS SWOLLEN, WITH CELLULITIS. RECEIVING ANTIBIOTICS AT INTERVALS THROUGH SHIFT. QUIET. LUNG SOUNDS DIMINISHED, WITH SOME WHEEZING PER AUSCULTATION. AM RN REPORTED PT TO HAVE ECHO LATER TODAY. HAS BEEN RESTING QUIETLY OTHERWISE WITH OCCASIONAL INERRUPTION. CALL LIGHT IN REACH. WILL CONTINUE TO MONITOR
[2022-08-23 05:20] LABS: BASOPHILS PERCENT AUTO 1 % (0-2); EOSINOPHILS ABSOLUTE AUTO 0.34 K/mm3 (0.00-0.68); EOSINOPHILS PERCENT AUTO 2 % (0-6); Hematocrit 31.3 % (33.0-51.0); Hemoglobin 9.9 g/dL (11.5-16.0); IMMATURE GRAN PERCENT AUTO 1 % (0-1); LYMPHOCYTES ABSOLUTE AUTO 2.72 K/mm3 (0.84-5.20); LYMPHOCYTES PERCENT AUTO 18 % (21-46); MONOCYTES ABSOLUTE AUTO 1.38 K/mm3 (0.16-1.47); MONOCYTES PERCENT AUTO 9 % (4-13); Mean Corpuscular HGB 31.9 pg (26.0-34.0); Mean Corpuscular HGB Conc 31.6 g/dL (31.5-36.5); Mean Corpuscular Volume 101 fL (80-100); Mean Platelet Volume 12.6 fL (9.1-12.4); NEUTROPHILS ABSOLUTE AUTO 10.02 K/mm3 (1.96-9.15); NEUTROPHILS PERCENT AUTO 68 % (41-73); Platelet Count 99 K/mm3 (150-400); RDW Coefficient Variation 14.4 % (11.7-14.2); RDW Standard Deviation 52.4 fL (35.1-46.3); White Blood Cell Count 14.76 K/mm3 (4.00-11.30)
[2022-08-23 06:37] LABS: Albumin, Blood 2.5 g/dL (3.4-5.0); Albumin/Globulin Ratio 0.6 (0.8-1.8); Bilirubin, Total 1.6 mg/dL (0.1-1.0); Bun/Creatinine Ratio 11.8 (12.0-20.0); Calcium, Blood 8.6 mg/dL (8.5-10.1); Creatinine, Blood 1.52 mg/dL (0.40-1.00); Globulin, Blood 4.2 g/dL (2.2-4.0); Potassium, Blood 3.5 mmol/L (3.5-5.5); Total Protein, Blood 6.7 g/dL (6.4-8.2)
--- NOTE | 2022-08-23 19:50 | NUR ---
SHIFT SUMMARY: PT A/O X 4, ONE ASSIST WITH WALKER TO BSC. PT PAIN TO L ARM TOLERABLE THROUGHOUT THE DAY. REDNESS DOES NOT APPEAR TO BE IMPROVED. PT TOLERATING IV ABX.
[2022-08-24 00:35] LABS: BASOPHILS ABSOLUTE AUTO 0.05 K/mm3 (0.00-0.23); BASOPHILS PERCENT AUTO 1 % (0-2); EOSINOPHILS ABSOLUTE AUTO 0.23 K/mm3 (0.00-0.68); EOSINOPHILS PERCENT AUTO 2 % (0-6); Hematocrit 28.5 % (33.0-51.0); Hemoglobin 9.4 g/dL (11.5-16.0); IMMATURE GRAN PERCENT AUTO 1 % (0-1); LYMPHOCYTES PERCENT AUTO 16 % (21-46); MONOCYTES ABSOLUTE AUTO 0.97 K/mm3 (0.16-1.47); MONOCYTES PERCENT AUTO 10 % (4-13); Mean Corpuscular HGB 33.1 pg (26.0-34.0); Mean Corpuscular Volume 100 fL (80-100); Mean Platelet Volume 12.7 fL (9.1-12.4); NEUTROPHILS PERCENT AUTO 70 % (41-73); Platelet Count 77 K/mm3 (150-400); RDW Coefficient Variation 14.6 % (11.7-14.2); RDW Standard Deviation 53.2 fL (35.1-46.3); Red Blood Cell Count 2.84 M/mm3 (3.80-5.20); White Blood Cell Count 9.75 K/mm3 (4.00-11.30)
[2022-08-24 00:51] LABS: Albumin, Blood 2.3 g/dL (3.4-5.0); Anion Gap 3 mmol/L (6-16); Blood Urea Nitrogen 21 mg/dL (8-24); CO2, Blood 22 mmol/L (21-32); Calcium, Blood 8.7 mg/dL (8.5-10.1); Chloride, Blood 114 mmol/L (98-108); Glomerular Filtration Rate 39 (60-); Glucose, Blood 109 mg/dL (70-99); Phosphorus, Blood 2.7 mg/dL (2.5-4.9); Potassium, Blood 3.5 mmol/L (3.5-5.5); Sodium, Blood 139 mmol/L (136-145); Vancomycin, Trough 14.8 ug/mL (5.0-10.0)
--- NOTE | 2022-08-24 04:28 | NUR ---
DEVIL TENDER SUMMARY VSS. QUIET UNLESS SPOKEN TO. WATCHING TV INTERMITTENTLY AND SLEEPING IN BETWEEN THROUGH SHIFT. ASSISTED UP TO BEDSIDE COMMODE AND BACK TO BED. CONTINUES TO HAVE WET/WHEEZING BREATH SOUNDS THAT ARE HEARD EVEN WITHOUT AUSCULTATION. ROOM AIR. ANTIBIOTICS INFUSING ORDERED - SEE MAR FOR DETAILS. DENIED HAVING PAIN. S/S CELLULITIS OF LUE CONTINUES. CALL LIGHT IN REACH. WILL CONTINUE TO MONITOR
--- NOTE | 2022-08-24 18:13 | NUR ---
SHIFT SUMMARY: PT A/O X 4 STANDBY ASSIST WITH WALKER. PT WORKED WITH PT/OT TODAY. PER PT SHE REPORTED TO PT/OT SHE HAS ASSISTANCE AT HOME FROM SPOUSE AND DAUGHTER LIVING WITH HER. HOWEVER HER DAUGHTER TYLER REPORTED HER DAD ASSISTS WITH TAKING HER MOM TO HER MEDICAL APPT AND DROPS HER OFF AND REFILLS HER MEDICATIONS NEEDED BUT DOES NOT ACTUALLY ASSIST WITH DAILY ADL'S HE LIVES IN A SEPARATE DWELLING ON THE PROPERTY. HER SISTER WHO LIVES WITH KHUSHI WORKS [employer]ED AND IS NOT HOME TO HELP WITH ADL'S. DAUGHTER TYLER IS WORRIED IF SHE GOES HOME WITH HOME HEALTH SHE WILL CONTINUE TO DECLINE. PT L ARM APPEARS TO BE IMPROVING. SWELLING AND REDNESS DECREASED. PT USING ARM BETTER WHEN FEEDING HERSELF. PT MORE ALERT TODAY.
--- NOTE | 2022-08-25 04:28 | NUR ---
USED CAR SALESPERSON SUMMARY NO ACUTE EVENTS THROUGHOUT THE NIGHT. A&OX4. SLOW SPEECH, FLAT AFFECT. PATIENT EFFECTIVELY COMMUNICATES NEEDS OTHERWISE. VSS. RR EVEN AND SLIGHTLY LABORED ON RA. AUDIBLE WHEEZE HEARD. PATIENT REPORTS THIS HER BASELINE AND DOES NOT DEMONSTRATE DISTRESS. BED LOW AND LOCKED. CALL LIGHT WITHIN REACH.
[2022-08-25 05:43] LABS: BASOPHILS ABSOLUTE AUTO 0.07 K/mm3 (0.00-0.23); BASOPHILS PERCENT AUTO 1 % (0-2); EOSINOPHILS ABSOLUTE AUTO 0.21 K/mm3 (0.00-0.68); EOSINOPHILS PERCENT AUTO 2 % (0-6); Hematocrit 31.5 % (33.0-51.0); Hemoglobin 9.9 g/dL (11.5-16.0); IMMATURE GRAN ABSOLUTE AUTO 0.08 K/mm3 (0.00-0.10); IMMATURE GRAN PERCENT AUTO 1 % (0-1); LYMPHOCYTES PERCENT AUTO 17 % (21-46); MONOCYTES PERCENT AUTO 10 % (4-13); Mean Corpuscular HGB 32.9 pg (26.0-34.0); Mean Corpuscular HGB Conc 31.4 g/dL (31.5-36.5); Mean Platelet Volume 12.8 fL (9.1-12.4); NEUTROPHILS ABSOLUTE AUTO 5.94 K/mm3 (1.96-9.15); NEUTROPHILS PERCENT AUTO 68 % (41-73); Platelet Count 74 K/mm3 (150-400); RDW Coefficient Variation 14.6 % (11.7-14.2); RDW Standard Deviation 55.7 fL (35.1-46.3); Red Blood Cell Count 3.01 M/mm3 (3.80-5.20)
[2022-08-25 05:45] LABS: Mean Corpuscular Volume 105 fL (80-100)
[2022-08-25 06:05] LABS: Albumin, Blood 2.1 g/dL (3.4-5.0); Albumin/Globulin Ratio 0.5 (0.8-1.8); Bilirubin, Direct 0.4 mg/dL (0.0-0.3); Bilirubin, Indirect 0.7 mg/dL (0.1-0.7); Bilirubin, Total 1.1 mg/dL (0.1-1.0); Bun/Creatinine Ratio 14.7 (12.0-20.0); Calcium, Blood 8.2 mg/dL (8.5-10.1); Creatinine, Blood 1.36 mg/dL (0.40-1.00); Globulin, Blood 4.1 g/dL (2.2-4.0); Phosphorus, Blood 2.6 mg/dL (2.5-4.9); Potassium, Blood 3.5 mmol/L (3.5-5.5); Total Protein, Blood 6.2 g/dL (6.4-8.2)
--- NOTE | 2022-08-25 12:27 | NUR ---
RIGHT FA PT HAS HISTORY OF LYMPHEDEMA. SHE NOTED THAT HER RIGHT FA WAS OOZING AND HER BLANKET WAS WET. NOTED A SMALL AMOUNT OF CLEAR LIQUID OOZING DOWN HER ARM. PLACED AN ABD AND WRAPPED WITH COBAN. ELEVATED ON A PILLOW. CONTINUE POC.
--- NOTE | 2022-08-25 16:50 | NUR ---
EVENING NOTE PT ALERT AND ORIENTED TO SELF. SHE ANSWERS DIRECT HISTORY QUESTIONS WELL BUT NOT CORRECTLY. THEN HER DAUGHTER CAME IN AND CORRECTED THE STORY. DAUGHTER RELATED THAT PT ISN'T IN A SAFE HOME ENVIROMENT. POOR NUTRITION. THE PEOPLE THERE DON'T HELP HER. DAUGHTER REVIEWED HER MEDICATIONS AND CLEARED UP SEVERAL SHE DOESN'T TAKE. DAUGHTER IS GOING TO START THE PROCESS FOR GUARDIANSHIP. PT RESTING QUIETLY. VSS. RIGHT UE WEEPING EDEMA. DRY DRESSING APPLIED TO PROTECT AREA. ARMS CONTINUE TO BE FLUSHED RED IN COLOR BUT NOT HOT. PT C/O OF LEFT RIB CAGE DISCOMFORT. SHE STATED SHE FELL. NO BRUISE OR SKIN INJURY NOTED. AREA IS TENDER TO PALPATION. MEDICATED WITH TYLENOL WHICH HELPED WITH THE PAIN. CONTINUE POC.
[2022-08-25] MEDS ORDERED: LITH300ER PO (17:59)
[2022-08-25] MEDS ORDERED: DOXY100 PO (18:03)
[2022-08-26 00:28] LABS: Vancomycin, Trough 22.2 ug/mL (5.0-10.0)
--- NOTE | 2022-08-26 00:35 | NUR ---
CRITICAL VALUE LAB REPORTED A CRITICAL VANCO TROUGH OF 22.2. VANCO HELD AT THIS TIME. NO ACUTE SIGNS OR SYMPTOMS. THIS RN WILL CONTINUE TO MONITOR.
--- NOTE | 2022-08-26 05:06 | NUR ---
PROMOTIONS INTERN SUMMARY NO ACUTE EVENTS THROUGHOUT THE NIGHT. A&OX4. PATIENT EFFECTIVELY COMMUNICATES NEEDS. SLOW SPEECH. VSS. RR EVEN AND SLIGHTLY LABORED, WHICH PATIENT REPORTS BASELINE. NO REPORTS OF PAIN OR OTHER SYMPTOMS THIS SHIFT. CRITICAL VANCO TROUGH AT 22.2. VANCO THERAPY MODIFIED BY PHARMACY. PATIENT IS OTHERWISE TOLERATING ABO THERAPY. BED LOW AND LOCKED. CALL LIGHT WITHIN REACH. THIS RN WILL CONTINUE TO MONITOR.
== END 2022-08-26 14:42 | disposition home health service (06) | DRG 872 ==
LOC: ER 19:38 → PCU 23:55 → MEDS 08-22 18:24
PROVIDERS: Family Medicine; Family Medicine Adult Medicine; Student in an Organized Health Care Education/Training Program; ADMIT Internal Medicine
DX: A41.9 Sepsis, unspecified organism (principal); L03.114 Cellulitis of left upper limb; I50.30 Unspecified diastolic (congestive) heart failure; E87.20 Acidosis, unspecified; D84.821 Immunodeficiency due to drugs; J45.909 Unspecified asthma, uncomplicated; F31.9 Bipolar disorder, unspecified; R65.20 Severe sepsis without septic shock; N18.30 Chronic kidney disease, stage 3 unspecified; K52.9 Noninfective gastroenteritis and colitis, unspecified; E87.6 Hypokalemia; M79.89 Other specified soft tissue disorders; B19.20 Unspecified viral hepatitis C without hepatic coma; D69.59 Other secondary thrombocytopenia; T45.1X5A Adverse effect of antineoplastic and immunosuppressive drugs, initial encounter; K74.60 Unspecified cirrhosis of liver; K21.9 Gastro-esophageal reflux disease without esophagitis; R33.9 Retention of urine, unspecified; Z59.41 Food insecurity; Z88.0 Allergy status to penicillin; Z88.8 Allergy status to other drugs, medicaments and biological substances; Z88.5 Allergy status to narcotic agent; Z79.899 Other long term (current) drug therapy; Z79.51 Long term (current) use of inhaled steroids; Z79.52 Long term (current) use of systemic steroids; Z79.01 Long term (current) use of anticoagulants; Z87.19 Personal history of other diseases of the digestive system; Z90.49 Acquired absence of other specified parts of digestive tract; Z87.891 Personal history of nicotine dependence
CPT/HCPCS: 36415; 71045; 73201; 80053; 80069; 80202; 81003; 82248; 83605; 83735; 83880; 84100; 84484; 85025; 87040; 93005; 93010; 93306; 94640; 94664; 94760; 94762; 96361-59; 96365-59; 96367-59; 97110; 97116; 97129; 97162; 97165; 97530; 97535; 99285-25; A9270; C1751; J0692; J1650; J3370; J7030; J7050; J7120; P9612; Q9967

== ENCOUNTER 2022-09-03 12:08 | Inpatient (IN) | payer OTHER ==
[~2022-09-03] VITALS: Ht 170.2 cm; Wt 90.7 kg
[~2022-09-03 12:08] MED LIST changes: +DOXY100 PO; +LITH300ER PO; +Potassium Chlo20 ME1 PO; +TRELEGY ELLIPT1 EAC1 INH
[2022-09-03 13:02] LABS: Base Excess Venous -8.5 mmol/L; PCO2 Venous 40.6 mmHg (38-42); pH Blood Venous 7.27 (7.34-7.37)
[2022-09-03 13:26] LABS: BASOPHILS ABSOLUTE AUTO 0.09 K/mm3 (0.00-0.23); BASOPHILS PERCENT AUTO 1 % (0-2); EOSINOPHILS ABSOLUTE AUTO 0.15 K/mm3 (0.00-0.68); EOSINOPHILS PERCENT AUTO 1 % (0-6); Hematocrit 31.5 % (33.0-51.0); Hemoglobin 9.9 g/dL (11.5-16.0); IMMATURE GRAN ABSOLUTE AUTO 0.09 K/mm3 (0.00-0.10); IMMATURE GRAN PERCENT AUTO 1 % (0-1); LYMPHOCYTES ABSOLUTE AUTO 1.26 K/mm3 (0.84-5.20); LYMPHOCYTES PERCENT AUTO 10 % (21-46); MONOCYTES ABSOLUTE AUTO 1.13 K/mm3 (0.16-1.47); MONOCYTES PERCENT AUTO 9 % (4-13); Mean Corpuscular HGB Conc 31.4 g/dL (31.5-36.5); Mean Corpuscular Volume 105 fL (80-100); Mean Platelet Volume 12.5 fL (9.1-12.4); NEUTROPHILS ABSOLUTE AUTO 10.06 K/mm3 (1.96-9.15); NEUTROPHILS PERCENT AUTO 79 % (41-73); Platelet Count 84 K/mm3 (150-400); RDW Coefficient Variation 15.9 % (11.7-14.2); RDW Standard Deviation 59.9 fL (35.1-46.3); White Blood Cell Count 12.78 K/mm3 (4.00-11.30)
[2022-09-03 13:41] LABS: Albumin, Blood 2.3 g/dL (3.4-5.0); Albumin/Globulin Ratio 0.5 (0.8-1.8); Bilirubin, Total 1.2 mg/dL (0.1-1.0); Bun/Creatinine Ratio 23.2 (12.0-20.0); Creatinine, Blood 1.12 mg/dL (0.40-1.00); Globulin, Blood 4.4 g/dL (2.2-4.0); Potassium, Blood 4.9 mmol/L (3.5-5.5); Total Protein, Blood 6.7 g/dL (6.4-8.2)
[2022-09-03] MEDS ORDERED: SERT50 PO (17:52)
--- NOTE | 2022-09-03 18:32 | NUR ---
ADMIT PT REPORT RECEIVED FROM HARLEEN DALEY. PT ARRIVED BY SUSAN. TRANSFERED TO NEW BED WITH 4 ASSIST AND SLIDER SHEET. FAMILY IN ATTENDANCE. PT ALERT. SHE HAS HER USUAL EPIGLOTAL AUDIBLE WHEEZE. IT DISAPPEARED WHEN SHE WAS SETTLED. HAND TREMOR STOPPED WELL. EDEMA STABLE FROM LAST ADMIT. WRAPPED HER RIGHT FA D/T WEEPING AREAS THAT WERE PRESENT ON DISCHARGE. DURING MEDICATION RECONCILIATION WITH DAUGHTER AND PILL BOTTLES IT WAS FOUND THAT HER DAUGHTER HAD BEEN MEDICATING HER WITH ZOLOFT THAT WAS STOPPED BY HER PCP SINCE DISCHARGE HOME. CONTINUE POC.
[2022-09-03 19:07] LABS: PCO2 Venous 37.1 mmHg (38-42); pH Blood Venous 7.26 (7.34-7.37)
[2022-09-03 19:08] LABS: Base Excess Venous -10 mmol/L
--- NOTE | 2022-09-03 20:23 | NUR ---
Critical Lab: VBG Cl pH: 7.[address] GARNETT REPORTS CONTINUE TO MONITOR
--- NOTE | 2022-09-04 05:04 | NUR ---
SHIFT SUMMARY PATIENT HAD NO ACUTE CHANGES. AXO X 3 AND BEDREST. USES BEDPAN. CRITICAL LAB AT START OF SHIFT (SEE NOTE). LEFT AND RIGHT FOREARMS WRAPPED D/T WEEPING AREAS. PIV REMAINS INTACT. VSS/AFEBRILE. DENIES PAIN, SOB, AND N/V. COOPERATIVE WITH CARE. CALL LIGHT IN REACH. BED IN LOWEST POSITION AND ALARM ACTIVATED. WILL CONTINUE TO MONITOR UNTIL DAY SHIFT NURSE ASSUMES CARE.
[2022-09-04 06:09] LABS: Hematocrit 27.4 % (33.0-51.0); Hemoglobin 9.2 g/dL (11.5-16.0); Mean Corpuscular HGB 33.5 pg (26.0-34.0); Mean Corpuscular HGB Conc 33.6 g/dL (31.5-36.5); Platelet Count 74 K/mm3 (150-400); RDW Coefficient Variation 15.8 % (11.7-14.2); Red Blood Cell Count 2.75 M/mm3 (3.80-5.20); White Blood Cell Count 13.62 K/mm3 (4.00-11.30)
[2022-09-04 06:12] LABS: International Normalized Ratio 1.33; Prothrombin Time Results 13.7 Sec (9.7-11.5)
[2022-09-04 06:17] LABS: Albumin, Blood 2.2 g/dL (3.4-5.0); Albumin/Globulin Ratio 0.6 (0.8-1.8); Bilirubin, Total 0.9 mg/dL (0.1-1.0); Bun/Creatinine Ratio 25.8 (12.0-20.0); Calcium, Blood 8.8 mg/dL (8.5-10.1); Creatinine, Blood 1.32 mg/dL (0.40-1.00); Magnesium, Blood 2.3 mg/dL (1.6-2.4); Potassium, Blood 4.9 mmol/L (3.5-5.5); Total Protein, Blood 6.2 g/dL (6.4-8.2)
[2022-09-04 06:21] LABS: Mean Corpuscular Volume 100 fL (80-100); Mean Platelet Volume 13.3 fL (9.1-12.4)
[2022-09-04 06:26] LABS: Lithium 1.75 mmol/L (0.60-1.20)
--- NOTE | 2022-09-04 06:43 | NUR ---
CRITICAL LAB: LITHIUM 1.[address] DE LA CRUZ REPORTS TO HOLD PO LITHIUM AT THIS TIME.
[2022-09-04 14:02] LABS: C DIFFICILE DNA NEGATIVE (Negative)
--- NOTE | 2022-09-04 17:07 | NUR ---
SHIFT SUMMARY- PT IS ALERT AND ORIENTED X4. LOST IV ACCESS, POWER GLIDE PLANNED TODAY. UNABLE TO GIVE IV MEDICATION. SEE EMAR. NOTIFIED MD. NO ORDERS FOR CHANGE AT THIS TIME. BILAT ARMS WEEPING, REPLACED DRESSING. GENERALIZED EDEMA. +2 PITTING BILATERAL LOWER EXTREMITIES. EXTREMITIES ELEVATED. PT HAS BEEN DRINKING WATER THROUGHOUT THE DAY. UP TO BEDSIDE COMMODE X1 AND TO COMMODE X2. BED IS IN THE LOWEST POSITION ALARM IS ON, WITH CALL LIGHT IN REACH.
--- NOTE | 2022-09-05 04:28 | NUR ---
SHIFT SUMMARY NOC PT A/O X 4. PT STILL WEEPING EDEMA +3 BUE WITH LEFT ARM MORE PROMINENT WITH GENERALIZED EDEMA T/O. DRESSING WAS CHANGED DURING SHIFT. PT STILL SBA WITH FWW TO GO TO BATHROOM. NO ACUTE CHANGES TO REPORT. PT HAS PG IN HIPOLITO. PT HAD CRITICAL LITHIUM LAB OF 1.75 ON 09/04/22 AND AWAITING AM LABS. PT HAS PALLIATIVE CARE CONSULT SCHEDULED. PT IS CURRENTLY RESTING IN WITH BED IN LOWEST POSITION, AND CALL LIGHT WITHIN REACH. WCTM.
[2022-09-05 08:06] LABS: Albumin, Blood 2.3 g/dL (3.4-5.0); Albumin/Globulin Ratio 0.6 (0.8-1.8); Bilirubin, Total 0.7 mg/dL (0.1-1.0); Bun/Creatinine Ratio 28.4 (12.0-20.0); Calcium, Blood 8.6 mg/dL (8.5-10.1); Creatinine, Blood 1.41 mg/dL (0.40-1.00); Potassium, Blood 4.3 mmol/L (3.5-5.5); Total Protein, Blood 6.3 g/dL (6.4-8.2)
[2022-09-05 11:33] LABS: Lithium 1.34 mmol/L (0.60-1.20)
--- NOTE | 2022-09-06 03:46 | NUR ---
SHIFT SUMMARY NOC PT A/O X 4. NO ACUTE CHANGES TO REPORT. PT STILL HAS WEEPING COMING FROM BUE WITH LEFT SIDE MORE PRONOUNCED. DRESSINGS IN PLACE C/D/I. PT STILL WHEEZY IN LUNGS ESPECIALLY UPON EXERTION AND GIVEN 2 BREATHING TREATMENTS BY RT. PT USES CALL LIGHT APPROPRIATELY WHEN NEEDING TO USE RESTROOM. PT IS SBA WITH FWW. PT HAS PG IN HIPOLITO. PT STILL HAS CRITICAL VALUE LITHIUM OF 1.34 WITH LAST DOSE GIVEN 09/03/22. AWAITING AM LABS FOR RESULTS. PT IS CURRENTLY RESTING WITH BED IN LOWEST POSITION, AND CALL LIGHT WITHIN REACH. WCTM.
[2022-09-06 06:04] LABS: Albumin, Blood 2.2 g/dL (3.4-5.0); Albumin/Globulin Ratio 0.6 (0.8-1.8); Bilirubin, Total 1.1 mg/dL (0.1-1.0); Bun/Creatinine Ratio 30.3 (12.0-20.0); Calcium, Blood 8.7 mg/dL (8.5-10.1); Creatinine, Blood 1.32 mg/dL (0.40-1.00); Globulin, Blood 3.9 g/dL (2.2-4.0); Total Protein, Blood 6.1 g/dL (6.4-8.2)
[2022-09-06 06:07] LABS: Lithium 1.18 mmol/L (0.60-1.20)
--- NOTE | 2022-09-06 17:08 | NUR ---
SHIFT SUMMARY PT AXO AND COOPERATIVE WITH CARE. THOUGH PATIENT'S DAUGHTER STATES THAT PATIENT IS NOT COGNITIVELY ABLE TO COMMUNICATE APPROPRIATELY. VSS.SMALL BM X3-4 THIS SHIFT, DENIES DIARRHEA. PT'S DAUGHTER IN PT'S ROOM EARLIER AND WAS CONCERNED ABOUT POSSIBLE DC TODAY. DAUGHTER STATED THAT SHE WILL REFUSE THE DISCHARGE R/T NOT BEING ABLE TO CARE FOR PATIENT AT HOME. THIS NURSE CALLED DR MARIA AT 1210 TO LET HIM KNOW. AWAITING FURTHER ORDERS AT THIS TIME. PT'S DAUGHTER STATES THAT HOME HEALTH DID NOT SEE PATIENT IN HER HOME FOR AN EXTENDED AMOUNT OF TIME AND STATES THAT USP IS MORE APPROPRIATE UNTIL PATIENT IS STRONGER OR CAN MOVE INTO PUBLICATION[employer] INSPECTOR CARE. DRESSINGS TO BUE REMOVED BY PT'S DAUGHTER. BUE NO LONGER WEEPING AND ARE OPEN TO AIR AT THIS TIME. 1410ML IN SO FAR THIS SHIFT AND 2200ML URINE OUTPUT SO FAR THIS SHIFT. BED IN LOW POSITION, CALL LIGHT WITHIN REACH. PT DENIES PAIN, SOB AND NV.
--- NOTE | 2022-09-07 04:16 | NUR ---
SHIFT SUMMARY NOC PT A/O X 3-4. NO WEEPING TO REPORT FROM BUE THIS SHIFT. NO ACUTE CHANGES. PT PLEASANT AND COOPERATIVE WITH CARE. DAY SHIFT REPORTED THAT PT DAUGHTER REFUSED TO HAVE PT DISCHARGED HOME BECAUSE SHE CAN NOT CARE FOR PT AT HOME. SNF PLACEMENT IS BEING DISCUSSED POSSIBILITY THEN LTC PLACEMENT PENDING MEDICAID APPROVAL. PT WAS LESS TREMULOUS THAN PREVIOUS NIGHT. PT IS CURRENTLY RESTING WITH BED IN LOWEST POSITION, AND CALL LIGHT WITHIN REACH. TM.
[2022-09-07 05:47] LABS: Hematocrit 29.6 % (33.0-51.0); Hemoglobin 9.7 g/dL (11.5-16.0); Mean Corpuscular HGB 33.7 pg (26.0-34.0); Mean Corpuscular HGB Conc 32.8 g/dL (31.5-36.5); Mean Corpuscular Volume 103 fL (80-100); Mean Platelet Volume 12.4 fL (9.1-12.4); Platelet Count 75 K/mm3 (150-400); RDW Coefficient Variation 16.3 % (11.7-14.2); RDW Standard Deviation 61.3 fL (35.1-46.3); Red Blood Cell Count 2.88 M/mm3 (3.80-5.20); White Blood Cell Count 8.24 K/mm3 (4.00-11.30)
[2022-09-07 06:06] LABS: Albumin, Blood 2.3 g/dL (3.4-5.0); Albumin/Globulin Ratio 0.6 (0.8-1.8); Bilirubin, Total 0.9 mg/dL (0.1-1.0); Bun/Creatinine Ratio 26.8 (12.0-20.0); Calcium, Blood 8.5 mg/dL (8.5-10.1); Creatinine, Blood 1.23 mg/dL (0.40-1.00); Globulin, Blood 3.9 g/dL (2.2-4.0); Phosphorus, Blood 3.5 mg/dL (2.5-4.9); Potassium, Blood 3.8 mmol/L (3.5-5.5); Total Protein, Blood 6.2 g/dL (6.4-8.2)
[2022-09-07 15:27] LABS: SARS-Cov-2 (COVID-19) PCR, MMC NEGATIVE (NEGATIVE)
--- NOTE | 2022-09-07 17:23 | NUR ---
DC TO [facility] PG DC'D WITH CATH TIP INTACT, NO REDNESS OR SWELLING NOTED. PT TO [facility] VIA MEDICAL TRANSPORT WITH ALL PERSONAL BELONGINGS. DC PKT GIVEN TO TRANSPORT PERSONNEL.
== END 2022-09-07 17:41 | disposition home or self-care (01) | DRG 432 ==
LOC: ER 12:08 → MEDS 12:09
PROVIDERS: Emergency Medicine; Family Medicine; Nurse Practitioner Acute Care; Student in an Organized Health Care Education/Training Program; ADMIT Internal Medicine
DX: K74.60 Unspecified cirrhosis of liver (principal); G93.41 Metabolic encephalopathy; I50.33 Acute on chronic diastolic (congestive) heart failure; J45.901 Unspecified asthma with (acute) exacerbation; K52.1 Toxic gastroenteritis and colitis; E87.21 Acute metabolic acidosis; L03.114 Cellulitis of left upper limb; J44.1 Chronic obstructive pulmonary disease with (acute) exacerbation; R18.8 Other ascites; F31.9 Bipolar disorder, unspecified; N18.30 Chronic kidney disease, stage 3 unspecified; K21.9 Gastro-esophageal reflux disease without esophagitis; R33.9 Retention of urine, unspecified; D63.1 Anemia in chronic kidney disease; T36.95XA Adverse effect of unspecified systemic antibiotic, initial encounter; T56.891A Toxic effect of other metals, accidental (unintentional), initial encounter; D69.59 Other secondary thrombocytopenia; B19.20 Unspecified viral hepatitis C without hepatic coma; Z20.822 Contact with and (suspected) exposure to COVID-19; Z88.0 Allergy status to penicillin; Z88.5 Allergy status to narcotic agent; Z88.8 Allergy status to other drugs, medicaments and biological substances; Z79.899 Other long term (current) drug therapy; Z79.2 Long term (current) use of antibiotics; Z79.51 Long term (current) use of inhaled steroids; Z79.52 Long term (current) use of systemic steroids; Z87.19 Personal history of other diseases of the digestive system; Z98.890 Other specified postprocedural states; Z90.49 Acquired absence of other specified parts of digestive tract; Z87.891 Personal history of nicotine dependence
CPT/HCPCS: 36415; 71046; 80053; 80178; 82803; 83735; 84100; 84484; 85025; 85027; 85610; 87493; 93005; 93010; 94640; 94664; 94760; 96372; 96374; 96376; 97162; 97530; 99285-25; A9270; C1751; G0378; J1644; J1940; U0004

== ENCOUNTER 2022-11-07 18:04 | Emergency (ER) | payer OTHER ==
[~2022-11-07] VITALS: Ht 160 cm; Wt 74.8 kg
[2022-11-07 18:50] LABS: BASOPHILS ABSOLUTE AUTO 0.04 K/mm3 (0.00-0.23); BASOPHILS PERCENT AUTO 1 % (0-2); EOSINOPHILS PERCENT AUTO 2 % (0-6); Hematocrit 31.3 % (33.0-51.0); Hemoglobin 9.8 g/dL (11.5-16.0); IMMATURE GRAN ABSOLUTE AUTO 0.02 K/mm3 (0.00-0.10); IMMATURE GRAN PERCENT AUTO 0 % (0-1); LYMPHOCYTES ABSOLUTE AUTO 1.22 K/mm3 (0.84-5.20); LYMPHOCYTES PERCENT AUTO 23 % (21-46); MONOCYTES ABSOLUTE AUTO 0.64 K/mm3 (0.16-1.47); MONOCYTES PERCENT AUTO 12 % (4-13); Mean Corpuscular HGB 30.9 pg (26.0-34.0); Mean Corpuscular HGB Conc 31.3 g/dL (31.5-36.5); Mean Corpuscular Volume 99 fL (80-100); Mean Platelet Volume 12.3 fL (9.1-12.4); NEUTROPHILS ABSOLUTE AUTO 3.37 K/mm3 (1.96-9.15); NEUTROPHILS PERCENT AUTO 63 % (41-73); Platelet Count 87 K/mm3 (150-400); RDW Coefficient Variation 14.2 % (11.7-14.2); RDW Standard Deviation 51.5 fL (35.1-46.3); Red Blood Cell Count 3.17 M/mm3 (3.80-5.20); White Blood Cell Count 5.39 K/mm3 (4.00-11.30)
[2022-11-07 19:03] LABS: Albumin, Blood 2.9 g/dL (3.4-5.0); Albumin/Globulin Ratio 0.7 (0.8-1.8); Bilirubin, Total 0.7 mg/dL (0.1-1.0); Bun/Creatinine Ratio 22.7 (12.0-20.0); Calcium, Blood 8.7 mg/dL (8.5-10.1); Creatinine, Blood 1.1 mg/dL (0.40-1.00); Globulin, Blood 3.9 g/dL (2.2-4.0); Potassium, Blood 4.6 mmol/L (3.5-5.5); Total Protein, Blood 6.8 g/dL (6.4-8.2)
[2022-11-07 20:45] VITALS: BP 114/74
[2022-11-07] MEDS ORDERED: CYCL10 PO (21:57)
== END 2022-11-07 22:02 | disposition home or self-care (01) ==
LOC: ER 18:04
PROVIDERS: Student in an Organized Health Care Education/Training Program
DX: S29.011A Strain of muscle and tendon of front wall of thorax, initial encounter (principal); X58.XXXA Exposure to other specified factors, initial encounter; Z88.0 Allergy status to penicillin; Z88.5 Allergy status to narcotic agent; Z88.6 Allergy status to analgesic agent; Z79.899 Other long term (current) drug therapy; J45.909 Unspecified asthma, uncomplicated; K21.9 Gastro-esophageal reflux disease without esophagitis; Z87.891 Personal history of nicotine dependence
CPT/HCPCS: 36415; 71046; 80053; 83690; 83880; 84484; 85025; 93005; 93010; 94640; 94664; 96374; 99284-25; A9270; J1885

== ENCOUNTER 2022-12-02 11:35 | Day surgery (SDC) | payer OTHER ==
[~2022-12-02] VITALS: Ht 160 cm; Wt 72.9 kg
[~2022-12-02 11:35] MED LIST changes: +CYCL10 PO
[2022-12-02] MEDS ORDERED: SPIR25 PO (12:11)
[2022-12-02] MEDS ORDERED: FURO40 PO (12:29)
[2022-12-02 13:38] VITALS: BP 116/60
--- NOTE | 2022-12-02 13:42 | NUR ---
12/02/22 1342 Hawa White IV DISCONTINUED AND REMOVERD INTACT AND WNL
== END 2022-12-02 13:42 | disposition home or self-care (01) ==
LOC: ORSCSDS 11:35
PROVIDERS: Internal Medicine Gastroenterology
PROC: 0DJ08ZZ Inspection of Upper Intestinal Tract, Via Natural or Artificial Opening Endoscopic (ICD-10-PCS; principal; 2022-12-02 13:00)
DX: K74.69 Other cirrhosis of liver (principal); K57.30 Diverticulosis of large intestine without perforation or abscess without bleeding; Z86.010 Personal history of colon polyps; K76.6 Portal hypertension; K31.89 Other diseases of stomach and duodenum; I50.9 Heart failure, unspecified; J45.909 Unspecified asthma, uncomplicated; Z79.899 Other long term (current) drug therapy
CPT/HCPCS: J2704; J7120

== ENCOUNTER → 2023-07-08 | Outpatient (CLI) | payer OTHER ==
[~2023-07-08] MED LIST changes: +FURO40 PO; +SPIR25 PO
[2023-07-08 19:27] LABS: BASOPHILS ABSOLUTE AUTO 0.02 K/mm3 (0.00-0.23); BASOPHILS PERCENT AUTO 0 % (0-2); EOSINOPHILS ABSOLUTE AUTO 0.12 K/mm3 (0.00-0.68); EOSINOPHILS PERCENT AUTO 2 % (0-6); Hematocrit 42.2 % (33.0-51.0); Hemoglobin 13.8 g/dL (11.5-16.0); IMMATURE GRAN ABSOLUTE AUTO 0.01 K/mm3 (0.00-0.10); IMMATURE GRAN PERCENT AUTO 0 % (0-1); LYMPHOCYTES ABSOLUTE AUTO 1.55 K/mm3 (0.84-5.20); LYMPHOCYTES PERCENT AUTO 31 % (21-46); MONOCYTES ABSOLUTE AUTO 0.45 K/mm3 (0.16-1.47); MONOCYTES PERCENT AUTO 9 % (4-13); Mean Corpuscular HGB 31.1 pg (26.0-34.0); Mean Corpuscular HGB Conc 32.7 g/dL (31.5-36.5); Mean Corpuscular Volume 95 fL (80-100); Mean Platelet Volume 12.5 fL (9.1-12.4); NEUTROPHILS ABSOLUTE AUTO 2.94 K/mm3 (1.96-9.15); NEUTROPHILS PERCENT AUTO 58 % (41-73); Platelet Count 108 K/mm3 (150-400); RDW Coefficient Variation 13.6 % (11.7-14.2); RDW Standard Deviation 47.8 fL (35.1-46.3); Red Blood Cell Count 4.44 M/mm3 (3.80-5.20); White Blood Cell Count 5.09 K/mm3 (4.00-11.30)
[2023-07-08 20:54] LABS: Alanine Aminotransfer (ALT/SGP 22 U/L (12-78); Albumin, Blood 3.2 g/dL (3.4-5.0); Albumin/Globulin Ratio 0.8 (0.8-1.8); Alk Phos 126 U/L (50-136); Anion Gap 5 mmol/L (6-16); Aspartate Aminotrans (AST/SGOT 20 U/L (12-37); Bilirubin, Total 0.7 mg/dL (0.1-1.0); Blood Urea Nitrogen 17 mg/dL (8-24); Bun/Creatinine Ratio 14.2 (12.0-20.0); CHOL/HDL RATIO 2.1; CO2, Blood 26 mmol/L (21-32); Calcium, Blood 8.8 mg/dL (8.5-10.1); Chloride, Blood 110 mmol/L (98-108); Cholesterol 152 mg/dL (50-200); Ferritin, Serum 17 ng/mL (8-252); Globulin, Blood 4.2 g/dL (2.2-4.0); Glomerular Filtration Rate 51 (60-); Glucose, Blood 152 mg/dL (70-99); HDL Cholesterol 73 mg/dL (>39); Iron Serum 133 ug/dL (50-170); LDL/HDL RATIO 0.9; Low Density Lipoprotein Chol 69 mg/dL (0-110); Percent Saturation 31.4 % (15.0-50.0); Potassium, Blood 3.1 mmol/L (3.5-5.5); Sodium, Blood 141 mmol/L (136-145); Total Iron Binding Capacity 423 ug/dL (250-450); Total Protein, Blood 7.4 g/dL (6.4-8.2); Triglycerides 51 mg/dL (30-160); Very Low Density Lipoprot Chol 10 mg/dL (6-32)
== END ==
LOC: LAB SHORT 18:12 → LAB 18:12
PROVIDERS: Family Medicine
DX: I50.30 Unspecified diastolic (congestive) heart failure (principal); D64.9 Anemia, unspecified
CPT/HCPCS: 80053; 80061; 82728; 83540; 83550; 85025

== ENCOUNTER 2023-12-27 10:57 | Day surgery (SDC) | payer OTHER ==
[~2023-12-27] VITALS: Ht 160 cm; Wt 61.4 kg
[~2023-12-27 10:57] MED LIST changes: +Lactated Ringer's 1,000 ML IV ONE
[2023-12-27] MEDS ORDERED: CeFAZolin Sodium 2,000 MG VIAL ONE (11:24)
[2023-12-27] MEDS ORDERED: NS 50 ML IV ONE (11:24)
[2023-12-27] MEDS ORDERED: Lidocaine 1%-Epineph 1:100000 20 ML MDV ONE (11:30)
[2023-12-27] MEDS ORDERED: JARDIANCE10 MG PO (11:50)
[2023-12-27] MEDS ORDERED: Methocarbamol500 MG PO (11:50)
[2023-12-27] MEDS ORDERED: Lactated Ringer's 1,000 ML IV ONE (11:56)
--- NOTE | 2023-12-27 12:50 | NUR ---
12/27/23 1250 Corazon Lloyd TIMEOUT FOR PRE-OP INJECTION [address] ESPINO AT 1241
[2023-12-27 13:22] VITALS: BP 144/62
--- NOTE | 2023-12-27 13:55 | NUR ---
12/27/23 6887 Slava Sanchez PT DECLINED PRESCRIPTION FOR NORCO STATING NARCOTICS MAKE HER ILL. DISCUSSED IMPORTANCE OF ICE AND ELEVATION, SUGGESTED IBUPROFEN OR TYLENOL IF EXPERIENCING PAIN. SHE DENIED PAIN BY TIME OF DISCHARGE
== END 2023-12-27 13:54 | disposition home or self-care (01) ==
LOC: ORSCSDS 10:57
PROVIDERS: Orthopaedic Surgery
PROC: 01N50ZZ Release Median Nerve, Open Approach (ICD-10-PCS; principal; 2023-12-27 12:15)
DX: G56.02 Carpal tunnel syndrome, left upper limb (principal); J44.9 Chronic obstructive pulmonary disease, unspecified; I12.9 Hypertensive chronic kidney disease with stage 1 through stage 4 chronic kidney disease, or unspecified chronic kidney disease; N18.30 Chronic kidney disease, stage 3 unspecified; Z79.899 Other long term (current) drug therapy
CPT/HCPCS: 82947; J0690; J7120

== ENCOUNTER 2024-09-12 06:40 | Day surgery (SDC) | payer OTHER ==
[~2024-09-12] VITALS: Ht 160 cm; Wt 71.4 kg
[~2024-09-12 06:40] MED LIST changes: +Balanced Salt Epinephrine Irrigation Solution 500 mL IR SCH; +JARDIANCE10 MG PO; -Lactated Ringer's 1,000 ML IV ONE; +Lidocaine HCl/Pf 1% 5 ML VIAL XX SCH; +Methocarbamol500 MG PO; +Moxifloxacin HCL 0.5 MG/0.1 ML 0.4MLSYR LEFTEYE SCH; +PHENYLEPHRINE\\TROPICAMIDE\\TETRACAINE OPHTHALMIC DILATING SOLN LEFTEYE PRN; +Povidone-Iodine 450 DROP/30 ML Solution LEFTEYE SCH; +Povidone-Iodine 450 DROP/30 ML Solution ONE
[2024-09-12] MEDS ORDERED: Lidocaine HCl/Pf 1% 5 ML VIAL ONE (06:41)
[2024-09-12] MEDS ORDERED: Tetracaine HCl/Pf 0.5% Opth Soln 4 ml ONE (06:43)
--- NOTE | 2024-09-12 07:05 | NUR ---
09/12/24 0705 Jason Cavazos CALL LIGHT WITHIN REACH. TETRACAINE IN LEFT EYE AT 0700 AND PLEDGETT IN AT 0702.
[2024-09-12] MEDS ORDERED: Ondansetron HCl 2 MG / ML 2ML Vial ONE (07:15)
[2024-09-12] MEDS ORDERED: Glycopyrrolate 0.2 MG/ML 5ML VIAL ONE (07:15)
[2024-09-12] MEDS ORDERED: Midazolam HCl 1MG / ML 2ML Vial ONE (08:01)
[2024-09-12] MEDS ORDERED: FentaNYL Citrate 50 MCG/ML 2 ML Injection ONE (08:01)
[2024-09-12 08:20] VITALS: BP 125/75
== END 2024-09-12 08:31 | disposition home or self-care (01) ==
LOC: ORSCSDS 06:40
PROVIDERS: Student in an Organized Health Care Education/Training Program
PROC: 08RK3JZ Replacement of Left Lens with Synthetic Substitute, Percutaneous Approach (ICD-10-PCS; principal; 2024-09-12 08:00)
DX: H25.813 Combined forms of age-related cataract, bilateral (principal); I12.9 Hypertensive chronic kidney disease with stage 1 through stage 4 chronic kidney disease, or unspecified chronic kidney disease; N18.30 Chronic kidney disease, stage 3 unspecified; J44.89 Other specified chronic obstructive pulmonary disease; Z87.891 Personal history of nicotine dependence; K21.9 Gastro-esophageal reflux disease without esophagitis; F31.9 Bipolar disorder, unspecified; F90.9 Attention-deficit hyperactivity disorder, unspecified type; F41.9 Anxiety disorder, unspecified; Z79.899 Other long term (current) drug therapy
CPT/HCPCS: J2003; J2250; J2405; J3010; V2632

== ENCOUNTER 2024-09-26 06:40 | Day surgery (SDC) | payer OTHER ==
[~2024-09-26] VITALS: Ht 160 cm; Wt 73.2 kg
[~2024-09-26 06:40] MED LIST changes: -Moxifloxacin HCL 0.5 MG/0.1 ML 0.4MLSYR LEFTEYE SCH; +Moxifloxacin HCL 0.5 MG/0.1 ML 0.4MLSYR RIGHTEYE SCH; -PHENYLEPHRINE\\TROPICAMIDE\\TETRACAINE OPHTHALMIC DILATING SOLN LEFTEYE PRN; +PHENYLEPHRINE\\TROPICAMIDE\\TETRACAINE OPHTHALMIC DILATING SOLN RIGHTEYE PRN; -Povidone-Iodine 450 DROP/30 ML Solution LEFTEYE SCH; +Povidone-Iodine 450 DROP/30 ML Solution RIGHTEYE SCH; +Tetracaine HCl/Pf 0.5% Opth Soln 4 ml ONE
[2024-09-26] MEDS ORDERED: Midazolam HCl 1MG / ML 2ML Vial ONE (06:59)
[2024-09-26] MEDS ORDERED: FentaNYL Citrate 50 MCG/ML 2 ML Injection ONE (07:28)
[2024-09-26 08:07] VITALS: BP 107/61
== END 2024-09-26 08:18 | disposition home or self-care (01) ==
LOC: ORSCSDS 06:40
PROVIDERS: Student in an Organized Health Care Education/Training Program
PROC: 08RJ3JZ Replacement of Right Lens with Synthetic Substitute, Percutaneous Approach (ICD-10-PCS; principal; 2024-09-26 08:00)
DX: H25.811 Combined forms of age-related cataract, right eye (principal); Z96.1 Presence of intraocular lens; J44.9 Chronic obstructive pulmonary disease, unspecified; N18.9 Chronic kidney disease, unspecified; F31.9 Bipolar disorder, unspecified; Z87.891 Personal history of nicotine dependence; F41.9 Anxiety disorder, unspecified; K21.9 Gastro-esophageal reflux disease without esophagitis; Z79.899 Other long term (current) drug therapy
CPT/HCPCS: 82947; J2250; J3010; V2632